=== PATIENT | female | born 1975 | race Caucasian/White ===

== ENCOUNTER 2016-08-22 | Emergency (ER) | payer MEDICARE, OTHER | END 2016-08-22 20:22 | disposition left against medical advice (07) | DX: Z53.21 Procedure and treatment not carried out due to patient leaving prior to being seen by health care provider (principal) ==

== ENCOUNTER 2021-10-01 11:19 | Emergency (ER) | payer MEDICARE, OTHER ==
[~2021-10-01 11:19] MED LIST: EPIPEN 2-P0.3 MG/0.3 INJ; KEFLEX CAP 500500 MG PO; KEPPRA750 MG PO; NORCO 5-325 TA1 EACH PO; SUBOXONE 8 MG-1 EACH SL; ZOFRAN ODT 4 MG4 MG SL
[2021-10-01] MEDS ORDERED: AMOX TR-K CLV1 EAC4 PO (12:49)
== END 2021-10-01 13:05 | disposition home or self-care (01) ==
LOC: ER1 11:19
DX: N39.0 Urinary tract infection, site not specified (principal); F17.210 Nicotine dependence, cigarettes, uncomplicated; Z88.2 Allergy status to sulfonamides; Z88.5 Allergy status to narcotic agent
CPT/HCPCS: 81001; 99283

== ENCOUNTER 2021-12-27 16:50 | Emergency (ER) | payer MEDICARE, OTHER ==
[~2021-12-27 16:50] MED LIST changes: +AMOX TR-K CLV1 EAC4 PO
[2021-12-27] MEDS ORDERED: NAPROXEN500 MG PO (20:54)
== END 2021-12-27 21:02 | disposition home or self-care (01) ==
LOC: ER1 16:50
DX: S93.602A Unspecified sprain of left foot, initial encounter (principal); S60.222A Contusion of left hand, initial encounter; F17.210 Nicotine dependence, cigarettes, uncomplicated; Z88.5 Allergy status to narcotic agent; Z88.2 Allergy status to sulfonamides; W19.XXXA Unspecified fall, initial encounter
CPT/HCPCS: 73130; 73630; 99283